=== PATIENT | female | born 1945 | race Caucasian/White ===

== ENCOUNTER 2018-09-19 07:51 | Day surgery (SDC) | payer MEDICARE, OTHER, MEDICAID ==
[2018-09-19] MEDS ORDERED: PROPOFOL 60 ML (10:28)
== END 2018-09-19 12:35 | disposition home or self-care (01) ==
LOC: GIL 07:51
DX: D12.3 Benign neoplasm of transverse colon (principal); K64.8 Other hemorrhoids; R19.5 Other fecal abnormalities; I10 Essential (primary) hypertension; E78.5 Hyperlipidemia, unspecified
CPT/HCPCS: 45380; 88305

== ENCOUNTER → 2018-11-26 | Outpatient (CLI) | payer MEDICARE, OTHER ==
[~2018-11-26] MED LIST: IOHEXOL 100 ML; IOHEXOL 350MG/ML 50 ML BTL; SOD CHLORIDE 0.9% 100 ML
== END | disposition home or self-care (01) ==
LOC: PUL 08:20
DX: R06.00 Dyspnea, unspecified (principal); R06.02 Shortness of breath
CPT/HCPCS: 71275; 94010; 94729